=== PATIENT | female | born 1980 | race Caucasian/White ===

== ENCOUNTER 2016-12-02 08:50 | Emergency (ER) | payer OTHER ==
[~2016-12-02] VITALS: Ht 162.6 cm; Wt 103.2 kg
[2016-12-02 08:53] VITALS: BP 146/85; PULSE 100; RESP 16; O2SAT 98
--- NOTE | 2016-12-02 09:02 | ED.REPORT ---
HPI-Preg Under 20 Weeks Date of Service Dec 02, 2016 ED Provider: The patient is a 36 year old female with history of ovarian cysts who is currently 6 weeks presents to the emergency department complaining of vaginal bleeding that she first noticed about 1 hour prior to arrival. The bleeding is not as much as a normal period. The blood was "dark red." She has also noticed some mild pelvic cramping. Her HCG was 322 2 days ago. She has not yet had an ultrasound. She denies history of pelvic infections. She has had a cough for the last few weeks but has otherwise been healthy. Nursing Notes Stated Complaint: 6 WEEKS /CRAMPING/BLEEDING Chief Complaint: & Delivery Nursing Notes Reviewed: Yes Allergies: Coded Allergies: acetaminophen (Verified Adverse Reaction, Severe, Headache, 12/02/16) hydrocodone (Verified Adverse Reaction, Severe, Headache, 12/02/16) General Time Seen by Provider: 09:04 Chief Complaint Abdominal cramping, Vaginal bleeding Context: : Known 1st trim Hx Obtained From: Patient Arrived By: Walk-in Onset Occurred: 1 - 4 hours ago Symptom Duration: Since onset Progression Since Onset: Constant Location: : Suprapubic Quality: Cramping Severity: Current: Mild Severity: Maximum: Mild Recent Healthcare: No recent hospitalization, Recent doctor visit Similar Sx Previous: No Past Medical History Past Medical History Notes: Past Medical History Ovarian cysts Past Surgical History Denies Family History Noncontributory Smoking History Never Smoker Social History Alcohol Use: Denies alcohol use Other Social History: Local resident Ambulatory Status Independent Review of Systems Constitutional: Denies: Chills, Fever Respiratory: Reports: Non-productive cough GI: Denies: Diarrhea, Nausea, Vomiting Female: Reports: Pelvic pain, , Vaginal bleeding - abnl Complete sys rev & neg: except as marked. Physical Exam Initial Vital Signs Vital Signs (First) Date Time Temp Pulse Resp B/P Pulse Ox O2 Delivery O2 Flow Rate FiO2 12/02/16 08:53 37.2 100 16 146/85 98 Initial VS: Reviewed Head / Eyes: Atraumatic, Normocephalic, PERRL ENT: Mucous membranes moist, Conjunctiva normal, No scleral icterus Neck: Supple, Non-tender, Full range of motion Respiratory: Breath sounds normal, Clear to auscultation, No respiratory distress Cardiovascular: Regular rate & rhythm, Heart sounds normal, Intact distal pulses Lymphatic: No lymphadenopathy Extremities: Vascular intact, Neuro intact, No swelling, No tenderness Skin: Warm, Dry, No cyanosis Neurologic: Alert, Oriented, Nonfocal Psychiatric: Mood/affect normal, Behavior normal, Normal thought content General/Constitutional: Awake, Alert, No acute distress, Cooperative Abdomen: Atraumatic, Soft, No guarding, No rebound Tenderness/Guarding/Rebound: Positive: Tender RLQ... (mild) Female Genitourinary: Exam deferred Interpretation & Diagnostics PELVIS ULTRASOUND: No IUP. No overt findings consistent with an ectopic. Lab Results Interpretation Result Diagram: 12/02/16 0942 Test 12/02/16 09:40 12/02/16 09:42 Hold Ochoa Top Tube Received (Received) White Blood Count 6.9th/mm3 (3.8-10.1) Red Blood Count 4.49mil/mm3 (3.90-5.20) Hemoglobin 13.6g/dL (12.0-15.6) Hematocrit 39.4% (35.0-46.0) Mean Corpuscular Volume 87.8fL (81-100) Mean Corpuscular Hemoglobin 30.3pg (27.0-35.0) Mean Corpuscular Hemoglobin Concent 34.5% (32.0-37.0) Red Cell Distribution Width 12.1% (12.3-15.4) Platelet Count 288bil/L (150-400) HCG Beta Subunit 312.1mIU/mL Re-Eval/Medical Decision Med Decision/Clinical Course Clinically more consistent with threatened miscarriage then ectopic . HCG is down trending. We will follow up with [facility]. Return precautions given. Source of Hx: Old records Re-Evaluation/Progress : Time of Eval: 10:52 Re-Evaluation/Progress Note: Discussed results, diagnosis, and plan for discharge with outpatient followup. All questions were addressed. Counseled Regarding: Diagnosis, Lab results, Need for follow-up, When/why to return to ED Discharge & Departure Primary Impression: Vaginal bleeding Additional Impression: Threatened Disposition: Home Discharge Condition All VS Reviewed: Yes Condition: Stable Additional Instructions: Thank you for entrusting us with your care today. Your HCG today was 312. Your blood type is Rh-, you were given RhoGAM. There was no evidence of either an ectopic or an intrauterine on ultrasound today. This may be a sign that you are having a miscarriage. Followup with your regular doctor or OBGYN in 2 days for re-evaluation and repeat testing. Please return if your pain increases or if you develop vomiting, fever, chills, heavy vaginal bleeding, or any other new or concerning symptoms. Referrals: [facility] (PCP) Ian Attestation Portions of this note were transcribed by Vane Mo. I, Dr. Cunningham personally performed the history, physical exam and medical decision-making; I reviewed and confirmed the accuracy of the information in the transcribed note. Signed by: Ian Knutson, 12/02/2016 and 1100. copies to: [facility] Timothy S DO Dec 02, 2016 09:02 Vane Mo Dec 02, 2016 09:06
[2016-12-02 09:53] LABS: Mean Corpuscular Hemoglobin 30.3 pg (27.0-35.0); Mean Corpuscular Volume 87.8 fL (81-100)
[2016-12-02] MEDS ORDERED: Rho(D) Immune Globulin 50 mCg Syringe IM ONE (10:40)
--- NOTE | 2016-12-02 11:33 | DRSVH ---
PROCEDURE: US PELVIC SONOGRAM + TRANSVAGINAL SONOGRAM INDICATIONS: 36 year-old woman in early with vaginal bleeding and right sided pain. TECHNIQUE: Real-time scanning was performed of the pelvic organs, with image documentation. Additional endovagi nal scanning was necessary due to incomplete visualization of the adnexal and endometrial structures by transabdominal scanning. COMPARISON: None. FINDINGS: (orthogonal measurements) Uterus size: 7.63 cm, 5.35 cm, 5.45 cm Endometrium thickness: 1.26 cm Right ovary size: 2.49 cm, 1.55 cm, 2.88 cm Left ovary size: 2.31 cm, 2.57 cm, 2.37 cm Transabdominal scanning: Limited scanning through the kidneys shows no hydronephrosis. There is a sm all amount of free pelvic fluid. Endovaginal scanning: Uterus: Uterus is normal in size and appearance. Endometrium is within normal physiologic limits. N o intrauterine gestational sac is identified. Ovaries: Right ovary is partially obscured by adjacent bowel. IMPRESSION: 1. No intrauterine gestational sac is identified. 2. Normal ovaries to the right ovary is partially obscured by overlying bowel gas. 3. Small amount of free fluid in pelvis. 4. Ectopic is unlikely but not entirely excluded. Please correlate with sequential beta hCG . If clinically indicated, followup exam may be obtained. Dictated by: Brendon Ruiz M.D. on 12/02/2016 at 11:25 Approved by: Brendon Ruiz M.D. on 12/02/2016 at 11:31
== END 2016-12-02 11:14 | disposition home or self-care (01) ==
LOC: SED 08:50
DX: O20.0 Threatened abortion (principal); Z88.5 Allergy status to narcotic agent; Z88.8 Allergy status to other drugs, medicaments and biological substances; Z3A.01 Less than 8 weeks gestation of pregnancy
CPT/HCPCS: 36415; 76830; 76856; 84702; 85027; 99284; J2788

== ENCOUNTER 2016-12-09 14:47 | Day surgery (SDC) | payer OTHER ==
[~2016-12-09] VITALS: Ht 162.6 cm; Wt 103.0 kg
[2016-12-09] MEDS ORDERED: methoTREXate-PF 25 mg/mL 2 mL Inj IM ONE (15:05)
[2016-12-09 15:16] LABS: Mean Corpuscular Hemoglobin 29.9 pg (27.0-35.0); Mean Corpuscular Volume 89.4 fL (81-100)
--- NOTE | 2016-12-09 16:56 | NUR ---
Injection Pt given education of medication as pt had not been given any education by MD. Injections given in right and left buttock @ 3428.
--- NOTE | 2016-12-09 17:12 | NUR ---
Injection Patient arrived to unit with . Reports 1-12/04 left lower abdominal discomfort. Plan of care discussed with patient. Labs drawn. Chemo certified RN here and injected ordered medication. Patient without adverse reactions while on unit. Left unit in stable condition.
== END 2016-12-09 23:59 | disposition home or self-care (01) ==
LOC: MOCO 14:47
PROVIDERS: ATTEND Obstetrics & Gynecology
DX: O00.90 Unspecified ectopic pregnancy without intrauterine pregnancy (principal); O02.81 Inappropriate change in quantitative human chorionic gonadotropin (hCG) in early pregnancy; F32.9 Major depressive disorder, single episode, unspecified; Z3A.01 Less than 8 weeks gestation of pregnancy
CPT/HCPCS: 36415; 80053; 85027; 96372; J9250